=== PATIENT | female | born 1950 | race Caucasian/White ===

== ENCOUNTER 2017-03-01 10:40 | Emergency (ER) | payer MEDICARE, BC ==
[2017-03-01 11:00] VITALS: BP 137/58
--- NOTE | 2017-03-01 11:27 | UC ---
Skin Complaint HPI - HPI Summary HPI Summary: Tic removed this morning at 8am-- - History of Current Complaint Chief Complaint: UCBiteInjury Time Seen by Provider: 03/01/17 11:20 Stated Complaint: TICK BITE Hx Obtained From: Patient ?: No Onset/Duration: Sudden Onset, Lasting Days - 1, Still Present Skin Exposure Onset/Duration: Days Ago - 1and removed this morning Timing: Constant Onset Severity: Mild Current Severity: Mild Pain Intensity: 0 Pain Scale Used: 0-10 Numeric Location: Discrete - left side of neck Character: Redness - at bite site Aggravating: Nothing Alleviating: Nothing Associated Signs & Symptoms: Positive: Negative Related History: Possible Reaction to: Insect - Allergy/Home Medications Allergies/Adverse Reactions: Allergies Allergy/AdvReac Type Severity Reaction Status Date / Time No Known Allergies Allergy Verified 03/01/17 10:50 Home Medications: Home Medications Ascorbic Acid TAB* [Vitamin C TAB*] 500 mg PO DAILY 03/01/17 [History Confirmed 03/01/17] Aspirin EC Low Dose* [Ecotrin EC Low Dose 81 MG*] 81 mg PO DAILY 03/01/17 [ History Confirmed 03/01/17] Atenolol TAB* [Tenormin TAB* 50 MG] 50 mg PO DAILY 03/01/17 [History Confirmed 03/01/17] Calcium Carbonate-Vitamin D [Calcium 600 + D] 1 tab PO DAILY 03/01/17 [History Confirmed 03/01/17] Ibuprofen TAB* [Advil TAB*] 400 mg PO Q6H PRN 03/01/17 [History Confirmed ] [place]-3 Fatty Acids [Fish Oil] 1,200 mg PO BID 03/01/17 [History Confirmed 03/01] Simvastatin (NF) [Zocor (NF)] 40 mg PO DAILY 03/01/17 [History Confirmed ] Triamterene/HCTZ 37.5-25 MG* [Dyazide CAP*] 1 cap PO DAILY 03/01/17 [History Confirmed 03/01/17] Review of Systems Constitutional: Negative Skin: Bruising - at attachment site of tick Eyes: Negative ENT: Negative Respiratory: Negative Cardiovascular: Negative Gastrointestinal: Negative Genitourinary: Negative Motor: Negative Neurovascular: Negative Musculoskeletal: Negative Neurological: Negative Psychological: Negative All Other Systems Reviewed And Are Negative: Yes PMH/Surg Hx/FS Hx/Imm Hx Previously Healthy: No Cardiovascular History Of: Reports: Hypertension - Surgical History Surgical History: Yes Surgery Procedure, Year, and Place: Left Bunionectomy, 2007, [facility] [place]; Left Carpal Tunnel, 2002, [facility] [place]; Hysterectomy, 2001, [facility]; Right Breast Lumpectiomies and Lymph Nodes, 1997, [place]; Right Ankle Fracture, 1983, [place]; [place]eth , 1980, [place]; Tonsillectomy, 1965 - Family History Known Family History: Positive: None - Social History Occupation: Retired Lives: With Family Alcohol Use: Occasionally Substance Use Type: None Smoking Status (MU): Former Smoker Amount Used/How Often: in college - Immunization History Most Recent Tetanus Shot: UTD (given within last ten years but can't remember date) Physical Exam Triage Information Reviewed: Yes Appearance: Well-Appearing, No Pain Distress, Well-Nourished Vital Signs: Initial Vital Signs Temp 98.3 F 03/01/17 10:45 Pulse 74 03/01/17 10:45 Resp 16 03/01/17 10:45 BP 137/58 03/01/17 10:45 Pulse Ox 98 03/01/17 10:45 Vital Signs Reviewed: Yes Eye Exam: Normal Eyes: Positive: Conjunctiva Clear ENT Exam: Normal ENT: Positive: Normal ENT inspection, Hearing grossly normal. Negative: Nasal congestion, Nasal drainage, Trismus, Muffled/hoarse voice Dental Exam: Normal Neck exam: Normal Neck: Positive: Supple, Nontender Respiratory Exam: Normal Respiratory: Positive: Chest non-tender, No respiratory distress, No accessory muscle use Cardiovascular Exam: Normal Cardiovascular: Positive: Pulses Normal, Brisk Capillary Refill Abdominal Exam: Normal Musculoskeletal Exam: Normal Musculoskeletal: Positive: Strength Intact, ROM Intact, No Edema Neurological Exam: Normal Neurological: Positive: Alert, Muscle Tone Normal Psychological Exam: Normal Skin Exam: Other Skin: Positive: Other - erythema at tick attachment site Course/Dx - Course Course Of Treatment: soap and water wash, education regarding lyme and tick s/s to observe for - Differential Diagnoses - Skin Complaint Differential Diagnoses: Cellulitis, Contact Dermatitis, Local Allergic Reaction , Tick Born Illness - Diagnoses Provider Diagnoses: Tick Exposure, Health Education Discharge - Discharge Plan Condition: Stable Disposition: HOME Patient Education Materials: Tick Bite (ED) Referrals: Quinn Winters MD [Primary Care Provider] - If Needed
== END 2017-03-01 11:40 | disposition home or self-care (01) ==
LOC: UCCORT 10:40
DX: S10.86XA Insect bite of other specified part of neck, initial encounter (principal); W57.XXXA Bitten or stung by nonvenomous insect and other nonvenomous arthropods, initial encounter; Y93.9 Activity, unspecified; Y99.9 Unspecified external cause status; I10 Essential (primary) hypertension
CPT/HCPCS: 99211; G0463

== ENCOUNTER 2017-08-15 08:40 | Emergency (ER) | payer MEDICARE, BC ==
[2017-08-15 08:58] VITALS: BP 153/80
--- NOTE | 2017-08-15 10:23 | UC ---
Ear Complaint HPI - HPI Summary HPI Summary: patient has had 3 dasy of itching andnow pain in the right ear. no fever or other symptoms noted. - History of Current Complaint Chief Complaint: UCEar Stated Complaint: RIGHT EAR PAIN Time Seen by Provider: 08/15/17 10:11 Hx Obtained From: Patient ?: No Onset/Duration: Sudden Onset, Lasting Days Severity Initially: Mild Severity Currently: Moderate - Allergies/Home Medications Allergies/Adverse Reactions: Allergies Allergy/AdvReac Type Severity Reaction Status Date / Time No Known Allergies Allergy Verified 08/15/17 08:51 Home Medications: Home Medications Lactobacillus [Probiotic] 1 cap DAILY 08/15/17 [History Confirmed 08/15/17] Magnesium 400 mg DAILY 08/15/17 [History Confirmed 08/15/17] PMH/Surg Hx/FS Hx/Imm Hx Previously Healthy: Yes - Surgical History Surgical History: Yes Surgery Procedure, Year, and Place: Left Bunionectomy, 2007, [facility] [place]; Left Carpal Tunnel, 2002, [facility] [place]; Hysterectomy, 2001, [facility]; Right Breast Lumpectiomies and Lymph Nodes, 1997, [place]; Right Ankle Fracture, 1983, [place]; [place]eth , 1980, [place]; Tonsillectomy, 1965 - Family History Known Family History: Positive: None - Social History Alcohol Use: Occasionally Substance Use Type: None Smoking Status (MU): Former Smoker Amount Used/How Often: in college - Immunization History Most Recent Influenza Vaccination: 2016 Most Recent Tetanus Shot: UTD (given within last ten years but can't remember date) Review of Systems Constitutional: Negative Skin: Negative Eyes: Negative ENT: Ear Ache Respiratory: Negative Cardiovascular: Negative Gastrointestinal: Negative Genitourinary: Negative Motor: Negative Neurovascular: Negative Musculoskeletal: Negative Neurological: Negative Is Patient Immunocompromised?: No All Other Systems Reviewed And Are Negative: Yes Physical Exam Triage Information Reviewed: Yes Appearance: Well-Appearing, Well-Nourished, Pain Distress Vital Signs: Initial Vital Signs Temp 97.7 F 08/15/17 08:53 Pulse 64 08/15/17 08:53 Resp 16 08/15/17 08:53 BP 153/80 08/15/17 08:53 Pulse Ox 97 08/15/17 08:53 Vital Signs Reviewed: Yes Eye Exam: Normal ENT: Positive: Hearing grossly normal, Pharynx normal, Other: - right auditory canal red and small amount of exudeate noted Dental Exam: Normal Neck exam: Normal Neck: Positive: Supple, Nontender, No Lymphadenopathy Respiratory Exam: Normal Respiratory: Positive: Chest non-tender, Lungs clear, Normal breath sounds Cardiovascular Exam: Normal Cardiovascular: Positive: RRR, No Murmur, Pulses Normal Abdominal Exam: Normal Bowel Sounds: Positive: Present Musculoskeletal Exam: Normal Musculoskeletal: Positive: Strength Intact, ROM Intact, No Edema Neurological Exam: Normal Neurological: Positive: Alert, Muscle Tone Normal Psychological Exam: Normal Skin Exam: Normal Ear Complaint Course/Dx - Course Course Of Treatment: hx obtained, exam performed ,meds reviewed, treated for otitis externa of right ear. - Differential Dx/Diagnosis Differential Diagnosis/HQI/PQRI: Cellulitis, Cerumen Impaction, Mastoiditis, Otitis Externa, Otitis Media, URI Provider Diagnoses: right otitis externa Discharge - Discharge Plan Condition: Stable Disposition: HOME Prescriptions: Ciproflox/Dexameth OTIC.SUSP* [Ciprodex OTIC.SUSP*] 4 drop .SEE ORDER BID #1 btl Patient Education Materials: Otitis Externa (ED) Referrals: Quinn Winters MD [Primary Care Provider] - Additional Instructions: 1. use the drops as prescribed. 2. Follow up with your doctor if symtpoms persist
== END 2017-08-15 10:36 | disposition home or self-care (01) ==
LOC: UCCORT 08:40
DX: H60.91 Unspecified otitis externa, right ear (principal); Z87.891 Personal history of nicotine dependence
CPT/HCPCS: 99212; G0463

== ENCOUNTER 2017-09-16 09:40 | Emergency (ER) | payer MEDICARE, BC ==
[2017-09-16 09:59] VITALS: BP 145/83
--- NOTE | 2017-09-16 10:35 | UC ---
Throat Pain/Nasal Nba HPI - HPI Summary HPI Summary: 66 y/o female presents to the urgent care c/o dry cough , sinus congestion, sore throat and B/L ear pain for the past 2 weeks. Pt reports sore throat became worse about 1 week ago due to the postnasal drip. Pain is dull 2/10, specially with swallowing. Nasal discharge is green w/ blood streaks at times. Pt denies fever, SOB, chest pain, abdominal pain, N/V/D. Pt has been taking Coricidin but it is not helping. - History of Current Complaint Chief Complaint: UCRespiratory Stated Complaint: COUGH SORE THROAT EARS Time Seen by Provider: 09/16/17 10:26 Hx Obtained From: Patient Hx Last Menstrual Period: menopausal Onset/Duration: Gradual Onset, Lasting Weeks - 2 weeks, Still Present Severity: Moderate Pain Intensity: 2 Pain Scale Used: 0-10 Numeric Cough: Nonproductive Associated Signs & Symptoms: Positive: Dysphagia, Sinus Discomfort, Nasal Discharge. Negative: Fever Related History: Seasonal Allergies - Epiglottits Risk Factors Epiglottis Risk Factors: Negative - Allergies/Home Medications Allergies/Adverse Reactions: Allergies Allergy/AdvReac Type Severity Reaction Status Date / Time No Known Allergies Allergy Verified 09/16/17 09:50 PMH/Surg Hx/FS Hx/Imm Hx Previously Healthy: Yes Endocrine History: Dyslipidemia Cardiovascular History: Hypertension Cancer History: Breast Cancer - 1997 - Surgical History Surgical History: Yes Surgery Procedure, Year, and Place: Left Bunionectomy, 2007, [facility] [place]; Left Carpal Tunnel, 2002, [facility] [place]; Hysterectomy, 2001, [facility]; Right Breast Lumpectiomies and Lymph Nodes, 1997, [place]; Right Ankle Fracture, 1983, [place]; [place] Teeth , 1980, [place]; Tonsillectomy, 1965 - Family History Known Family History: Positive: None - Social History Occupation: Retired Lives: With Family Alcohol Use: Occasionally Substance Use Type: None Smoking Status (MU): Former Smoker Amount Used/How Often: in college When Did the Patient Quit Smoking/Using Tobacco: 25 YRS AGO - Immunization History Most Recent Influenza Vaccination: 2017 Most Recent Tetanus Shot: UTD (given within last ten years but can't remember date) Review of Systems Constitutional: Negative Skin: Negative Eyes: Negative ENT: Sore Throat, Ear Ache, Nasal Discharge, Sinus Congestion, Sinus Pain/ Tenderness Respiratory: Cough - dry Cardiovascular: Negative Gastrointestinal: Negative Genitourinary: Negative Motor: Negative Neurovascular: Negative Musculoskeletal: Negative Neurological: Headache - at times Psychological: Negative Is Patient Immunocompromised?: No All Other Systems Reviewed And Are Negative: Yes Physical Exam Triage Information Reviewed: Yes Vital Signs: Initial Vital Signs Temp 98 F 09/16/17 09:52 Pulse 71 09/16/17 09:52 Resp 16 09/16/17 09:52 BP 145/83 09/16/17 09:52 Pulse Ox 97 09/16/17 09:52 - Additional Comments Vital signs: reviewed General: Well developed, well-nourished female patient sitting in the examining table with NAD. Head and face: Normocephalic and atraumatic, Positive tenderness over the frontal and maxillary sinuses.. Eyes: PERRLA, EOMI x 2. Normal conjunctiva. No eye discharge. ENT: Ears and TM with normal limits. Nose: with yellowish discharge and erythematous mucosa. Pharynx with mild erythema, no exudates. Positive yellowish postnasal drip Neck: Supple, no JVD, no carotid bruits and no lymphadenopathy. Lungs: clear, no rales, no rhonchi, no wheezes. CVS: RRR, S1 and S2 present no murmurs or gallops appreciated. Abdomen: soft nontender with positive bowel sounds. Extremities: no edema noted. Neuro: WNL. Skin: warm and dry Throat Pain/Nasal Course/Dx - Course Course Of Treatment: 66 y/o female presents to the urgent care c/o dry cough , sinus congestion, sore throat and B/L ear pain for the past 2 weeks. Pt reports sore throat became worse about 1 week ago due to the postnasal drip. Pain is dull 2/10, specially with swallowing. Nasal discharge is green w/ blood streaks at times. Pt denies fever, SOB, chest pain, abdominal pain, N/V/D. Pt has been taking Coricidin but it is not helping. Hx obtained. Pt with acute sinusitis on examination. Pt with 2 weeks of symptoms getting worse. Pt Rx Augmentin PO and flonase nasal spray. Tessalon PO for cough. Pt with elevated BP today advised decrease salt in diet and monitor BP, f/u with PCP for further management. Discharge instructions explained to Pt. Advised to Return to the clinic or PCP if symptoms do not improve.Pt understood and agreed with plan of care. - Differential Dx/Diagnosis Differential Diagnosis/HQI/PQRI: Laryngitis, Otitis Media, Pharyngitis, Sinusitis, Tonsillitis, URI Provider Diagnoses: 1- Acute sinusitis. 2-Uncontrolled HTN Discharge - Discharge Plan Condition: Stable Disposition: HOME Prescriptions: Amoxicillin/Clavulanate TAB* [Augmentin TAB 875*] 875 mg PO BID #20 tab Benzonatate CAP* [Tessalon 100 MG CAP*] 100 mg PO TID PRN #15 cap PRN Reason: Cough Fluticasone NASAL SPRAY 50MCG* [Flonase NASAL SPRAY 50MCG*] 2 spray BOTH NARES DAILY #1 btl Loratadine & Pseudoephedrine [Claritin-D 12 Hour] 1 tab PO BID #20 tab Patient Education Materials: Sinusitis (ED), Low Sodium Diet (ED) Referrals: Quinn Winters MD [Primary Care Provider] - 1 Week Additional Instructions: 1- Please increase fluid intake and rest. take full course of antibiotic to avoid resistance 2-Use Flonase as directed to help drain fluid. Also buy saline drops to clear sinuses 3-Take Claritin PO to alleviates sinus congestion 4-Return to the clinic or PCP if symptoms do not improve for further management and treatment 5- Your BP is elevated today, please decrease salt in your diet and monitor your BP. If it continues to be elevated please f/u with your PCP for further management
== END 2017-09-16 11:08 | disposition home or self-care (01) ==
LOC: UCCORT 09:40
DX: J01.90 Acute sinusitis, unspecified (principal); I10 Essential (primary) hypertension; E78.5 Hyperlipidemia, unspecified; Z85.3 Personal history of malignant neoplasm of breast; Z90.710 Acquired absence of both cervix and uterus; Z87.891 Personal history of nicotine dependence
CPT/HCPCS: 99212; G0463

== ENCOUNTER 2018-01-17 14:26 | Emergency (ER) | payer MEDICARE, BC ==
[2018-01-17 15:25] VITALS: BP 146/89
--- NOTE | 2018-01-17 15:56 | UC ---
Throat Pain/Nasal Nba HPI - HPI Summary HPI Summary: patient has had increase cough and now has sore muscle around ribs from coughing so much, denies fever, does have some PND and sinus pressure - History of Current Complaint Chief Complaint: UCGeneralIllness Stated Complaint: COUGH, SINUS PRESSURE Time Seen by Provider: 01/17/18 15:42 Hx Obtained From: Patient Hx Last Menstrual Period: menopausal ?: No Onset/Duration: Sudden Onset Pain Intensity: 4 Cough: Productive Associated Signs & Symptoms: Positive: Dysphagia, Hoarseness, Sinus Discomfort - Allergies/Home Medications Allergies/Adverse Reactions: Allergies Allergy/AdvReac Type Severity Reaction Status Date / Time No Known Allergies Allergy Verified 01/17/18 15:11 Home Medications: Home Medications Atorvastatin* [Lipitor*] 60 mg PO QPM 01/17/18 [History Confirmed 01/17/18] Fluticasone NASAL SPRAY 50MCG* [Flonase NASAL SPRAY 50MCG*] 2 spray BOTH NARES DAILY PRN 01/17/18 [History Confirmed 01/17/18] Loratadine/Pseudoephedrine [Claritin-D 12 Hour] 1 tab PO BID PRN 01/17/18 [ History Confirmed 01/17/18] Metoprolol Succinate 100 mg PO QPM 01/17/18 [History Confirmed 01/17/18] PMH/Surg Hx/FS Hx/Imm Hx Previously Healthy: Yes - Surgical History Surgical History: Yes Surgery Procedure, Year, and Place: Left Bunionectomy, 2007, [facility] [place]; Left Carpal Tunnel, 2002, [facility] [place]; Hysterectomy, 2001, [facility]; Right Breast Lumpectiomies and Lymph Nodes, 1997, [place]; Right Ankle Fracture, 1983, [place]; [place] Teeth , 1980, [place]; Tonsillectomy, 1965 - Family History Known Family History: Positive: None Negative: Cardiac Disease, Hypertension - Social History Alcohol Use: Occasionally Substance Use Type: None Smoking Status (MU): Former Smoker Amount Used/How Often: in college When Did the Patient Quit Smoking/Using Tobacco: 25 YRS AGO - Immunization History Most Recent Influenza Vaccination: 2017 Most Recent Tetanus Shot: UTD (given within last ten years but can't remember date) Review of Systems Constitutional: Chills Skin: Negative Eyes: Negative ENT: Sore Throat, Sinus Congestion Respiratory: Shortness Of Breath, Cough Cardiovascular: Negative Gastrointestinal: Negative Genitourinary: Negative Motor: Negative Neurovascular: Negative Musculoskeletal: Negative Neurological: Negative Psychological: Negative Is Patient Immunocompromised?: No All Other Systems Reviewed And Are Negative: Yes Physical Exam Triage Information Reviewed: Yes Appearance: Well-Nourished, Ill-Appearing, Pain Distress Vital Signs: Initial Vital Signs Temp 98.1 F 01/17/18 15:19 Pulse 95 01/17/18 15:19 Resp 18 01/17/18 15:19 BP 146/89 01/17/18 15:19 Pulse Ox 96 01/17/18 15:19 Vital Signs Reviewed: Yes Eye Exam: Normal ENT: Positive: Pharyngeal erythema, Nasal congestion, Nasal drainage, Hoarse voice, Sinus tenderness Dental Exam: Normal Neck exam: Normal Neck: Positive: Supple, Nontender, No Lymphadenopathy Respiratory Exam: Normal Respiratory: Positive: Chest non-tender, No respiratory distress, No accessory muscle use, Wheezing, Inspiration Cardiovascular Exam: Normal Cardiovascular: Positive: RRR, No Murmur, Pulses Normal Abdominal Exam: Normal Abdomen Description: Positive: Nontender, No Organomegaly, Soft Bowel Sounds: Positive: Present Musculoskeletal Exam: Normal Musculoskeletal: Positive: Strength Intact, ROM Intact, No Edema Neurological Exam: Normal Neurological: Positive: Alert, Muscle Tone Normal Psychological Exam: Normal Skin Exam: Normal Throat Pain/Nasal Course/Dx - Course Course Of Treatment: hx obtained, exam performed ,meds reviewed, treated for bronchitis - Differential Dx/Diagnosis Differential Diagnosis/HQI/PQRI: Otitis Media, Pharyngitis, Sinusitis, URI Provider Diagnoses: bronchitis Discharge - Discharge Plan Condition: Stable Disposition: HOME Prescriptions: guaiFENesin/CODIEN 100MG-10MG* [Robitussin AC 100Mg-10Mg*] 10 ml PO BEDTIME PRN #100 ml MDD 10 ml PRN Reason: Cough predniSONE TAB* [Deltasone TAB*] 40 mg PO DAILY #14 tab Patient Education Materials: Acute Bronchitis (ED) Referrals: Quinn Winters MD [Primary Care Provider] - Additional Instructions: 1. take the medication as prescribed. 2. get plenty of rest 3. warm fluids and salt water gargles 4. steam your sinuses and use vicks on your chest for symtpom relief.
== END 2018-01-17 16:03 | disposition home or self-care (01) ==
LOC: UCCORT 14:26
DX: J40 Bronchitis, not specified as acute or chronic (principal); Z87.891 Personal history of nicotine dependence
CPT/HCPCS: 99212; G0463

== ENCOUNTER 2019-03-02 09:38 | Emergency (ER) | payer MEDICARE, BC ==
[2019-03-02 10:11] VITALS: BP 156/92
--- NOTE | 2019-03-02 10:24 | UC ---
Lower Extremity/Ankle HPI - HPI Summary HPI Summary: 68 -year-old female who twisted her left ankle on an uneven sidewalk while she was walking a and Thursday. She states she doesn't have pain with walking however is swollen and she felt she should have it checked. She does have an Roger bandage applied however it's a bit too tight. - History of Current Complaint Chief Complaint: UCLowerExtremity Stated Complaint: LT ANKLE INJURY Time Seen by Provider: 03/02/19 09:59 Hx Obtained From: Patient Hx Last Menstrual Period: menopausal ?: No Onset/Duration: Sudden Onset Severity Initially: Moderate Severity Currently: Mild Pain Intensity: 0 Aggravating Factor(s): Ambulation Alleviating Factor(s): Rest, Elevation Able to Bear Weight: Yes - Allergies/Home Medications Allergies/Adverse Reactions: Allergies Allergy/AdvReac Type Severity Reaction Status Date / Time adhesive Allergy Hives Verified 03/02/19 10:12 Home Medications: Home Medications Calcium Carbonate/Vitamin D3 [Calcium 600 + Vit D Tablet] 1 each PO DAILY [History Confirmed 03/02/19] [place]-3 Fatty Acids (Nf) [Fish Oil (NF)] 1,000 mg PO DAILY 03/02/19 [History Confirmed 03/02/19] PMH/Surg Hx/FS Hx/Imm Hx Previously Healthy: Yes - Surgical History Surgical History: Yes Surgery Procedure, Year, and Place: Left [place]ectomy, 2007, [facility] [place]; [place] Tunnel, 2002, [facility] [place]; Hysterectomy, 2001, [facility]; Right Breast Lumpectiomies and Lymph Nodes, 1997, [place]; Right Ankle Fracture, 1983, [place]; [place]eth , 1980, [place]; Tonsillectomy, 1965 - Family History Known Family History: Positive: None Negative: Cardiac Disease, Hypertension - Social History Alcohol Use: Occasionally Substance Use Type: None Smoking Status (MU): Former Smoker Amount Used/How Often: in college When Did the Patient Quit Smoking/Using Tobacco: 25 YRS AGO - Immunization History Most Recent Influenza Vaccination: 2017 Most Recent Tetanus Shot: UTD (given within last ten years but can't remember date) Review of Systems All Other Systems Reviewed And Are Negative: Yes Motor: Positive: Negative Neurovascular: Positive: Negative Musculoskeletal: Positive: Other: - Swelling of left ankle and toes. Part of the swelling of the toes I think is because the Roger bandage was on too tight. Neurological: Positive: Negative Psychological: Positive: Negative Is Patient Immunocompromised?: No Physical Exam Appearance: Well-Appearing, No Pain Distress, Well-Nourished Vital Signs: Initial Vital Signs Temp 97.9 F 03/02/19 10:05 Pulse 83 03/02/19 10:05 Resp 16 03/02/19 10:05 BP 156/92 03/02/19 10:05 Pulse Ox 98 03/02/19 10:05 Vital Signs Reviewed: Yes Musculoskeletal: Positive: Strength Intact, ROM Intact, Other: - Mild swelling left ankle mostly laterally. Achilles is intact, good peripheral pulses, neuro sensation and capillary refill. Base of the fifth and first metatarsals are nontender. Good knee stability. Neurological Exam: Normal Psychological Exam: Normal Skin Exam: Normal Lower Extremity Course/Dx - Course Course Of Treatment: Left ankle x-ray:Report: Small grossly nondisplaced avulsion fracture from the caudal margin on the lateral malleolus with significant overlying soft tissue swelling in addition to generalized soft tissue swelling. Negative for additional fracture or articular malalignment. Dorsal osteophytosis at the tarsometatarsal joints. Small Achilles tendon and plantar fascia origin bone spurs. At the distal margin of the [id number] there is postsurgical change of first and second digit osteotomies. IMPRESSION: #. Grossly nondisplaced Fisher type A fracture of the lateral malleolus with significant overlying soft tissue swelling. CAM boot was applied and an appointment was made with Dr. Bee orthopedist at 1:30 PM today. - Differential Dx/Diagnosis Provider Diagnosis: Ankle fracture, left Discharge - Sign-Out/Discharge Documenting (check all that apply): Patient Departure All imaging exams completed and their final reports reviewed: Yes - Discharge Plan Condition: Fair Disposition: HOME Patient Education Materials: Ankle Fracture (DC) Referrals: Quinn Winters MD [Primary Care Provider] - Kyle Bee MD [Medical Doctor] - Additional Instructions: Follow up with Dr. Bee orthopedist at 1:30 PM this afternoon. Keep the CAM boot on until you're seen by him. - Billing Disposition and Condition Condition: FAIR Disposition: Home
== END 2019-03-02 11:16 | disposition home or self-care (01) ==
LOC: UCCORT 09:38
DX: S82.65XA Nondisplaced fracture of lateral malleolus of left fibula, initial encounter for closed fracture (principal); X50.1XXA Overexertion from prolonged static or awkward postures, initial encounter; Y93.K1 Activity, walking an animal; Y92.018 Other place in single-family (private) house as the place of occurrence of the external cause; Z91.048 Other nonmedicinal substance allergy status; Z87.891 Personal history of nicotine dependence
CPT/HCPCS: 99211; G0463